=== PATIENT | female | born 1975 | race Caucasian/White ===

== ENCOUNTER 2023-11-09 10:59 | Emergency (ER) | payer OTHER, SELFPAY ==
[2023-11-09] VITALS (8 sets, daily range): BP systolic 95–120; BP diastolic 46–80; PULSE 65–83; RESP 16–18; TEMP 36.3–36.8; O2SAT 97–99; BMI 21.5
--- NOTE | 2023-11-09 | ECG_ITS ---
Test Reason : OVERDOSE Blood Pressure : / mmHG Vent. Rate : 069 BPM Atrial Rate : 069 BPM P-R Int : 154 ms QRS Dur : 084 ms QT Int : 420 ms P-R-T Axes : 064 027 057 degrees QTc Int : 450 ms Normal sinus rhythm Normal ECG No previous ECGs available Referred By: Maria G Love Electronically Signed By:GRISELDA ALVAREZ MD
--- NOTE | ~2023-11-09 | CT_ITS ---
EXAMINATION: CT head/brain wo IV con CLINICAL INFORMATION: Reason for Exam ams COMPARISON: None. TECHNIQUE: Contiguous axial imaging was performed from the skull base to vertex without intravenous contrast. Sagittal and coronal reformatted images were obtained. This CT examination was performed using dose optimization techniques as appropriate, variously including the following: * Automated exposure control * Adjustment of mA and/or kV according to patient size (this includes techniques or standardized protocols for targeted exams where dose is matched to indication/reason for exam; i.e. extremities or head) Use of iterative reconstruction technique DLP: 694.59 mGy-cm FINDINGS: No acute osseous or soft tissue abnormality. The mastoid air cells and visualized portions of the paranasal sinuses are well aerated. There is no evidence of acute intracranial hemorrhage or territorial infarction. No abnormal mass effect or midline shift is seen. Goddard to white matter differentiation is well preserved. No extra-axial fluid collections are identified. No hydrocephalus. No significant volume loss. There is no abnormal attenuation within the brain parenchyma. CT/CT head/brain wo IV con IMPRESSION: No acute intracranial abnormality including hemorrhage, mass effect, hydrocephalus, or acute territorial edematous infarction.
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
[2023-11-09 11:43] LABS: MANUAL DIFF FLAG NO
[2023-11-09 11:45] LABS: Basophils Absolute Auto 0.1 X10*3/uL (0.0-0.2); Basophils Percent Auto 0.8 % (0-2); Eosinophils Absolute Auto 0.1 X10*3/uL (0.0-0.4); Eosinophils Percent Auto 1.9 % (0-4); Hemoglobin 13.9 g/dl (12.0-16.0); Imm Gran Abs Auto 0.02 X10*3/uL (0.00-0.03); Imm Gran Pct Auto 0.3 % (0.0-0.4); Lymphocytes Absolute Auto 2.1 X10*3/uL (1.2-4.9); Lymphocytes Percent Auto 33.5 % (20-40); Mean Corpuscular HGB Conc 33.9 g/dl (31.0-35.0); Mean Corpuscular Hemoglobin 31.9 pg (27.0-33.0); Monocytes Absolute Auto 0.4 X10*3/uL (0.1-1.2); Monocytes Percent Auto 6.1 % (2-11); Neutrophils Absolute Auto 3.7 x10*3/uL (2.0-8.3); Neutrophils Percent Auto 57.4 % (45-73); Platelet Count 329 X10*3/uL (160-400); Red Blood Count 4.36 X10*6/uL (4.20-5.50); Red Cell Distribution Width 13.3 % (11.0-16.0); White Blood Count 6.4 X10*3/uL (4.8-10.8)
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
[2023-11-09 11:53] LABS: INTERNATIONAL NORM RATIO 0.8 (0.9-1.1); Prothrombin Time 9.7 SEC (11.1-13.3)
[2023-11-09 12:06] LABS: Alanine Aminotransferase 8 U/L (0-31); Alkaline Phosphatase 70 U/L (39-117); Anion Gap 13 (12-20); Aspartate Amino Transferase 12 U/L (5-31); Bilirubin Total 0.1 mg/dL (0.0-1.0); Blood Urea Nitrogen 10 mg/dL (9-16); Calcium 8.2 mg/dL (8.4-10.2); Carbon Dioxide 20 mmol/L (22-29); Chloride 112 mmol/L (96-108); Creatinine Clr Calc Pharmacy 97.6; Estimated Glomerular Filt Rate > 60; Ethanol 299 mg/dL; Glucose Random 92 mg/dL (60-115); Lipase 46 U/L (8-78); Magnesium 2.5 mg/dL (1.6-2.6); Potassium 3.7 mmol/L (3.3-5.1); Sodium 141 mmol/L (135-145); Total Protein 6.8 g/dL (6.5-8.0)
[2023-11-09 12:07] LABS: Acetaminophen LAB < 3 mcg/mL (<30); HCG Quantitative < 2 mIU/mL; Salicylate < 5.0 mg/dL (15-30)
--- NOTE | 2023-11-09 12:07 | PC.NURSE ---
straight cath patient to obtain urine sample, 500mL of clear yellow urine output.
[2023-11-09 12:12] LABS: Appearance Urine Clear; Color Urine Yellow; Glucose Urine UA Negative (Negative); Leukocyte Esterase Urine Negative (Negative); Nitrite Urine Negative (Negative); Urine Blood Negative (Negative); Urine Ketones Negative (Negative); Urine Protein Negative (Neg-Trace)
[2023-11-09 12:14] LABS: Bacteria Urine None Seen (None Seen); Hyaline Casts Urine 0-2 /LPF (0-2); RBC Urine 0-2 /HPF (0-2); Squamous Epithelial Cell Urine 0-2 /HPF (0-2); WBC Urine 0-5 /HPF (0-5)
[2023-11-09 12:16] LABS: Amphetamine Screen Urine Not Detected (Not Detect); Barbiturates, Urine Not Detected (Not Detect); Benzodiazepines Screen Urine Not Detected (Not Detect); Cannabinoid Screen Urine Not Detected (Not Detect); Cocaine Screen Urine POSITIVE (Not Detect); Fentanyl, urine Not Detected (Not Detect); Opiate Screen Urine Not Detected (Not Detect); Phencyclidine Screen Urine Not Detected (Not Detect)
--- NOTE | 2023-11-09 12:19 | PC.NURSE ---
spoke with poison control who recommend supportive care, monitoring vital signs and airway. IV fluids if patient becomes hypotensive. repeat EKG in 4 hours.
[2023-11-09] MEDS: 0.9 % Sodium Chloride 1,000 ML 999 ML IV (13:09)
--- NOTE | 2023-11-09 13:10 | PC.NURSE ---
fluids infusing at this time d/t hypotension
--- NOTE | 2023-11-09 14:15 | PC.NURSE ---
provider verbal order for 2nd liter of fluids d/t hyoptension. patient observer remains in place
--- NOTE | 2023-11-09 16:56 | PC.NURSE ---
patient becoming more awake at this time, able to complete registration and ct scan. responding to verbal stimuli, remains lethargic. patient observer remains in place for patient safety.
--- NOTE | 2023-11-09 20:03 | PC.NURSE ---
Assumed care of pt at 1900. PT drowsy, arousable to light touch. PT reports she ingested ativan with the intention of killing herself. She denies SI/HI at this time. Informed Charged Nurse. VSS. Cardiac monitoring continues. Plan of care ongoing.
--- NOTE | 2023-11-09 22:57 | PC.NURSE ---
Addendum entered by Carol Sunshine Clair 11/09/23 23:29: This RN returned to medicate PT per CIWA protocol. Pt was sleeping- called pts name multiple times before she was aroused. Pt drowsy. held lorazepam and notified provider, ZAINAB Durant. Original Note: Pt vomitting, sweating, and reports HARVEY. CIWA 13. Notified provider. PT not changed over during day shirt. auto parts delivery driverkamilah Justice secured belongings and changed with over to mary knott.
--- NOTE | 2023-11-10 | PC.NURSE ---
This life underwriter assumed care of this Pt at 2300. Pt awakens with tactile stimuli. Pt A&Ox3, reports taking 6 Ativan pills, states I don't remember, I was drinking when asked about intent. Pt currently denies SI/HI/AH/VH. Pt requesting to use BR, ambulated independently with staff stand by, new drug urine sample collected and sent to lab.
[2023-11-10 00:42] LABS: Amphetamine Screen Urine Not Detected (Not Detect); Barbiturates, Urine Not Detected (Not Detect); Benzodiazepines Screen Urine Not Detected (Not Detect); Cannabinoid Screen Urine POSITIVE (Not Detect); Cocaine Screen Urine POSITIVE (Not Detect); Fentanyl, urine Not Detected (Not Detect); Opiate Screen Urine Not Detected (Not Detect); Phencyclidine Screen Urine Not Detected (Not Detect)
[2023-11-10 02:07] VITALS: BP 118/74; PULSE 83; RESP 20; O2SAT 95
--- NOTE | 2023-11-10 03:08 | PC.NURSE ---
Pt awakens to verbal stimuli, denies any pain. Pt sectioned [address] Leung. Edward from care team made aware and at bedside. 1:1 sitter at bedside for safety.
--- NOTE | 2023-11-10 03:52 | PC.NURSE ---
Med rec done, Pt able to verbalize home meds.
[2023-11-10 06:03] VITALS: BP 109/65; PULSE 73; RESP 16; O2SAT 98
[2023-11-10 10:08] VITALS: BP 140/94; PULSE 94; RESP 16; O2SAT 98
--- NOTE | 2023-11-10 10:12 | MHC.CARE ---
Patient reassessed this morning, collateral contact completed and the plan to discharge. ED provider ZAINAB Seaman updated and in support of disposition.
== END 2023-11-10 10:15 | disposition home or self-care (01) ==
PROVIDERS: Physician Assistant; Emergency Provider Emergency Medicine; PCP Family Medicine
DX: T42.4X2A Poisoning by benzodiazepines, intentional self-harm, initial encounter (principal); R40.0 Somnolence; Y92.009 Unspecified place in unspecified non-institutional (private) residence as the place of occurrence of the external cause; F10.220 Alcohol dependence with intoxication, uncomplicated; Y90.8 Blood alcohol level of 240 mg/100 ml or more; R79.1 Abnormal coagulation profile
CPT/HCPCS: 36415; 51701; 70450; 80053; 80143; 80179; 80307; 81001; 83690; 83735; 84702; 85025; 85610; 93005; 99285; S9485

== ENCOUNTER → 2023-11-09 11:56 | Outpatient (BNV) | payer OTHER, SELFPAY | PROVIDERS: Emergency Provider Emergency Medicine; PCP Family Medicine; Visit Provider Internal Medicine Cardiovascular Disease | DX: R00.2 Palpitations (principal) | CPT/HCPCS: 93010 ==